=== PATIENT | female | born 1980 | race Caucasian/White ===

== ENCOUNTER 2016-08-12 11:17 | Emergency (ER) | payer OTHER ==
[~2016-08-12] VITALS: Ht 157.5 cm; Wt 69.9 kg
[2016-08-12 11:35] VITALS: TEMP 36.9; Ht 157.5 cm; Wt 69.9 kg
[2016-08-12 15:40] VITALS: BP 149/117; PULSE 105; O2SAT 98
--- NOTE | 2016-08-12 15:54 | EMERGENCY ROOM VISIT NOTE ---
History First contact with patient: 12:18 Chief Complaint: NASAL PAIN/INJURY Stated Complaint: FOOD BOLUS 5 DAYS - "FOOD STUCK IN SINUS" History of Present Illness The patient is a 36 year old female who presents to the Emergency Room via private vehicle with complaints of " food stuck in sinus x 5 days". The patient states that on Monday night she was eating [place] food, and laughed/ hiccuped which cause food to go from the throat up into the posterior sinus region. She states that she was able to cough out a notable and broccoli but feels that something remains. She notes that she intermittently gets the taste of water chestnut is concerned this may be in the back of her throat still. She notes that if she inhales/exhales to her right nostril she feels a little tickling sensation in the back right of her throat. She has tried saline with minimal relief. She notes this is never happened before. She states that her tetanus is up-to-date and denies any drainage or foul smelling odor from this region. Review of Systems A complete 10-point Review of Systems was discussed with the patient, with pertinent positives and negatives listed in the History of Present Illness. All remaining Review of Systems questions can be considered negative unless otherwise specified. Past Medical/Surgical History Unremarkable Family History Heart disease, high blood pressure Social History Smoking Status: Current Every Day Smoker Social History: Patient is currently employed at [employer], lives alone, and admits to tobacco and alcohol products. Current/Historical Medications No Active Prescriptions or Reported Meds Allergies Coded Allergies: Acetaminophen (Verified Allergy, Unknown, GI SYMPTOMS, 08/12/16) Oxycodone (Verified Allergy, Unknown, GI SYMPTOMS, 08/12/16) Physical Exam Vital Signs Date Time Temp Pulse Resp B/P Pulse Ox O2 Delivery O2 Flow Rate FiO2 08/12/16 15:40 105 16 149/117 98 08/12/16 13:16 115 151/103 99 Room Air 08/12/16 11:35 36.9 88 20 161/98 99 Room Air Physical Exam VITAL SIGNS - Vital signs and nursing notes were reviewed. Patient is afebrile , slightly hypertensive at 161/98, non-tachycardic and is saturating well on room air 99%. GENERAL 36-year-old female appearing her stated age who is in no acute distress. Communicates well with provider and answers questions appropriately. SKIN - Without rashes. No petechial rashes. HEAD - NC/AT. EYES - Sclera anicteric. Palpebral conjunctiva pink and moist with no injection noted. EARS - No deformities of external structures noted on gross examination bilaterally. No pain elicited with palpation of the tragus bilaterally. External auditory canals without discharge or otorrhea. Tympanic membranes pearly bautista without retraction or bulging. No fluid or purulent material visualized behind the TM. Handle of malleus, umbo, cone of light, pars tensa/ flaccid all easily visualized. NOSE - Midline and without cyanosis. No epistaxis or purulent drainage noted. Septum midline without deviation or septal hematoma noted. MOUTH/OROPHARYNX - Without perioral cyanosis. Buccal mucosa pink and moist and without leukoplakia. Tongue midline with equal elevation of palate bilaterally. No tonsillar hypertrophy, erythema, or exudates noted. Good dentition noted. No erythema or evidence of retained foreign body. NECK - Neck with FROM. Supple to palpation. No lymphadenopathy noted. No nuchal rigidity. LUNGS - Chest wall symmetric without accessory muscle use, intercostals retractions, or central cyanosis. Normal vesicular breath sounds CTA B/L. No wheezes, rales, or rhonchi appreciated. CARDIAC - RRR with S1/S2. No murmur, rubs, or gallops appreciated. Medical Decision & Procedures Medical Decision Patient was seen and evaluated as above. After obtaining a thorough history and physical examination there was concern for potential retained foreign body beyond the area that was visible to my inspection with simple otoscope-type tools. I do believe that she warrants a fiberoptic examination via laryngoscope. I did discuss the case with my attending and it was agreed to perform this. Please refer to 's note regarding the procedure. Patient started as well. She was initially prepped with adequate sprays of Cetacaine. She tolerated the scope well. No foreign body was visualized. Patient also had repeat visualization done by oral maxillary facial surgeon, Dr. Cooper, who also did not see any retained foreign body. There was note of slight inflammation of the right posterior pharynx region likely secondary to irritation from either the food or previous inspection. There was no evidence of infection. Patient was instructed to use simple saline/saline bullets help cleanse the area. She is to use ibuprofen for inflammation and pain. She was to return with any worsening of her symptoms. It was recommended she follow up with a family doctor, of which she notes that she does not have. She notes that she is able to get one. I also listed the number for Dr. Cooper, for a follow-up as necessary. She is to return for any new/concerning symptoms. She was educated upon management at the base findings, had questions prior to discharge, was educated upon worrisome symptoms in which to return and was discharged home in good condition. I do suspect the patient is experiencing symptoms secondary to irritation from previous foreign body. I do not suspect any infection at this time. In the evaluation treatment this patient the following differential diagnoses were entertained: Retained foreign body, irritation secondary to previous foreign body, among others. Impression Primary Impression: Throat irritation Departure Information Dispostion Home / Self-Care Condition GOOD Prescriptions No Active Prescriptions or Reported Meds Referrals No Doctor, Assigned (PCP) Rell Cooper,DeboraS. Patient Instructions [facility] Additional Instructions You were seen in the emergency department for your potential nasal/throat foreign body. For pain control, you can use the following [id number] medicines (if >12 yo): - Regular strength (200 mg/tab) Advil (ibuprofen) 1-2 tabs every 4-6 hours as needed. Do not exceed a dose of 3200 mg per day. - For best results, alternate dosing of Tylenol and Advil. In addition to your prescribed medications, you can also use the following home remedies: - Warm salt-water gargles 3 times per day can soothe your throat and help to fight infection. - Warm tea with honey can soothe your throat. You may use simply saline, and sparing amounts of Afrin as needed. Return to the emergency department if your symptoms persist or worsen over the next 2-3 days despite treatment course outlined above. Return to the emergency department if you develop the following symptoms of: inability to swallow solids , liquids, or drool; excessive wheezing or inability to catch your breath; or intractable fever or pain. Follow up with your primary care provider in 2-3 days from today's emergency department visit. I provided number for an oral maxillary facial surgeon that you may follow-up with if your symptoms persist. Please return to the emergency department with any new/concerning symptoms.
--- NOTE | 2016-08-12 16:02 | EMERGENCY ROOM VISIT NOTE ---
ED Visit Note First contact with patient: 12:18 36-year-old female with foreign body sensation the back of her throat was fully evaluated by Leandro Uriostegui PA-C. Please see his note. I also independently evaluated the patient. I performed a fiberoptic laryngosocopy exam but found no foreign bodies. Patient does have some edema. The patient was later reexamined by Dr. Cooper who repaeated the fiberoptic exam and also found no foreign bodies.
== END 2016-08-12 16:19 | disposition home or self-care (01) ==
LOC: C.EDB 11:19 → C.EDD 16:19
DX: R07.0 Pain in throat (principal); R60.9 Edema, unspecified; F17.200 Nicotine dependence, unspecified, uncomplicated; Z88.5 Allergy status to narcotic agent; Z82.49 Family history of ischemic heart disease and other diseases of the circulatory system